=== PATIENT | male | born 1975 | race American Indian/Alaskan Native ===

== ENCOUNTER 2017-09-09 03:27 | Observation (INO) | payer MEDICAID, OTHER ==
--- NOTE | 2017-09-09 03:45 | ED PDOC ---
Arrival/HPI - General Chief Complaint: Chest Pain Time Seen by Provider: 09/09/17 03:33 Historian: Patient - History of Present Illness Narrative History of Present Illness (Text): 09/09/17 03:42 41 year old male, who denies any past medical history, presents to the emergency department complaining of intermittent left sided chest pain that began 40 minutes ago. Patient reports similar symptoms a year ago with no medical evaluation. Patient denies any cardiac family history, drug use, recent travel, any fever, chills, chest pain, shortness of breath, nausea, vomiting, diarrhea, urinary symptoms, back pain, neck pain, headache, dizziness, or any other complaints. Time/Duration: Other (40 minutes) Symptom Onset: Sudden Symptom Course: Unchanged Quality: Other ("Bubbling") Activities at Onset: Light Context: Home Past Medical History - Provider Review Nursing Documentation Reviewed: Yes - Travel History Have you recently traveled outside [place] w/in the past 3 mons?: No - Infectious Disease Hx of Infectious Diseases: None - Psychiatric Hx Substance Use: No Family/Social History - Physician Review Nursing Documentation Reviewed: Yes Family/Social History: No Known Family HX. denies: Other (Cardiac) Smoking Status: Never Smoked Hx Alcohol Use: No Hx Substance Use: No Allergies/Home Meds Allergies/Adverse Reactions: Allergies No Known Allergies Allergy (Verified 09/09/17 03:32) Home Medications: Home Meds Medication Instructions Recorded Confirmed No Known Home Med 09/09/17 09/09/17 Review of Systems - Physician Review All systems were reviewed & negative as marked: Yes - Review of Systems Constitutional: absent: Fevers, Other (Chills) Respiratory: absent: SOB Cardiovascular: Chest Pain Gastrointestinal: absent: Diarrhea, Nausea, Vomiting Genitourinary Male: absent: Dysuria, Frequency, Hematuria Musculoskeletal: absent: Back Pain, Neck Pain Neurological: absent: Headache, Dizziness Physical Exam Vital Signs Reviewed: Yes Vital Signs Temp Pulse Resp BP Pulse Ox 09/09/17 07:05 52 L 17 138/84 100 09/09/17 03:32 98.0 F 54 L 18 137/87 100 09/09/17 03:29 98.0 F 54 L 18 137/87 100 Temperature: Afebrile Blood Pressure: Normal Pulse: Bradycardic Respiratory Rate: Normal Appearance: Positive for: Well-Appearing, Non-Toxic, Comfortable Pain Distress: None Mental Status: Positive for: Alert and Oriented X 3 - Systems Exam Head: Present: Atraumatic, Normocephalic Pupils: Present: PERRL Extroacular Muscles: Present: EOMI Conjunctiva: Present: Normal Mouth: Present: Moist Mucous Membranes Neck: Present: Normal Range of Motion Respiratory/Chest: Present: Clear to Auscultation, Good Air Exchange. No: Respiratory Distress, Accessory Muscle Use Cardiovascular: Present: Regular Rate and Rhythm, Normal S1, S2. No: Murmurs Abdomen: No: Distention Back: Present: Normal Inspection Upper Extremity: Present: Normal Inspection. No: Cyanosis, Edema Lower Extremity: Present: Normal Inspection. No: Edema Neurological: Present: GCS=15, CN II-XII Intact, Speech Normal Skin: Present: Warm, Dry, Normal Color. No: Rashes Psychiatric: Present: Alert, Oriented x 3, Normal Insight, Normal Concentration Medical Decision Making ED Course and Treatment: 09/09/17 03:42 Impression: 41 year old male presents complaining of intermittent left sided chest pain that began 40 minutes ago. Denies any past medical history. Plan: -- EKG -- Labs -- Aspirin -- Urinalysis -- Nasal Cannula -- Reassess and disposition Progress Notes: 09/09/17 07:59 trop neg d-dimer neg wbc neg cxr no acute ECG sinus bradycardia pt now did admit to cocain use in about 1-1.5 mo ago but none in the past few fews. d/w Aracely Singh and will admit to tele obs and utox pending. - Lab Interpretations Lab Results: 09/09/17 04:03 09/09/17 04:03 Lab Results 09/09/17 04:03: Sodium 141, Potassium 4.3, Chloride 102, Carbon Dioxide 30, Anion Gap 14, BUN 28 H, Creatinine 1.0, Est GFR ( Amer) > 60, Est GFR ( Non-Af Amer) > 60, Random Glucose 96, Calcium 9.9, Magnesium 2.0, Total Bilirubin 0.6, AST 41, ALT 44, Alkaline Phosphatase 58, Lactate Dehydrogenase 566, Total Creatine Kinase 210, Troponin I < 0.01, Total Protein 8.1, Albumin 4.7, Globulin 3.3, Albumin/Globulin Ratio 1.4 09/09/17 04:03: PT 11.0, INR 1.01, APTT 32.5, D-Dimer, Quantitative < 200 09/09/17 04:03: WBC 7.3, RBC 4.65, Hgb 12.9 L, Hct 40.8 L, MCV 87.7, MCH 27.7, MCHC 31.6, RDW 13.2, Plt Count 282, MPV 10.1, Gran % 58.2, Lymph % (Auto) 30.9, [place] % (Auto) 9.0 H, Eos % (Auto) 1.5, Baso % (Auto) 0.4, Gran # 4.26, Lymph # 2.3, [place] # 0.7 H, Eos # 0.1, Baso # 0.03 I have reviewed the lab results: Yes - RAD Interpretation Narrative RAD Interpretations (Text): 09/09/17 07:53 cxr no acute. Radiology Orders: 09/09/17 07:03 CHEST TWO VIEWS (PA/LAT) [RAD] Stat Information Systems Supervisor: ED Physician - EKG Interpretation Interpreted by ED Physician: Yes (sinus bradycardia, flipped t waves avr, v1, v2 , flattened iii) Type: 12 lead EKG - Medication Orders Current Medication Orders: Discontinued Medications Aspirin (Aspirin) 325 mg PO STAT STA Stop: 09/09/17 03:45 Last Admin: 09/09/17 03:56 Dose: 325 mg - Scribe Statement The provider has reviewed the documentation as recorded by the Gypsy Rivera Provider Scribe Attestation: All medical record entries made by the Gypsy were at my direction and personally dictated by me. I have reviewed the chart and agree that the record accurately reflects my personal performance of the history, physical exam, medical decision making, and the department course for this patient. I have also personally directed, reviewed, and agree with the discharge instructions and disposition. Disposition/Present on Arrival - Present on Arrival Any Indicators Present on Arrival: No History of DVT/PE: No History of Uncontrolled Diabetes: No Urinary Catheter: No History of Decub. Ulcer: No History Surgical Site Infection Following: None - Disposition Have Diagnosis and Disposition been Completed?: Yes Diagnosis: Chest pain Disposition: HOSPITALIZED Disposition Time: 08:00 Patient Plan: Admission, Telemetry Condition: IMPROVED Discharge Instructions (ExitCare): Chest Pain (ED) Forms: scanR (Turkish)
[2017-09-09 04:34] LABS: BASO # 0.03 K/mm3 (0.0-2.0); BASO % 0.4 % (0.0-3.0); EOS # 0.1 (0.0-0.7); EOS % 1.5 % (1.5-5.0); GRAN # 4.26 (1.4-6.5); GRAN % 58.2 % (50.0-68.0); HEMATOCRIT 40.8 % (42.0-52.0); LYMPH # 2.3 (1.2-3.4); LYMPH % 30.9 % (22.0-35.0); MEAN CELL VOLUME 87.7 fl (80.0-105.0); MEAN CORPUSCULAR HEMOGLOBIN 27.7 pg (25.0-35.0); MEAN CORPUSCULAR HGB CONC 31.6 g/dl (31.0-37.0); MEAN PLATELET VOLUME 10.1 fl (7.0-11.0); MONO # 0.7 (0.1-0.6); RED CELL DISTRIBUTION WIDTH 13.2 % (11.5-14.5); WHITE BLOOD COUNT 7.3 10^3/ul (4.5-11.0)
[2017-09-09 04:38] LABS: ALB/GLOB RATIO 1.4 (1.1-1.8); BILIRUBIN,TOTAL 0.6 mg/dL (0.2-1.3); CALCIUM 9.9 mg/dL (8.4-10.5); GFR AFRICAN-AMERICAN > 60; GLUCOSE,RANDOM 96 mg/dL (70-110); TOTAL PROTEIN 8.1 g/dL (5.8-8.3)
[2017-09-09 04:48] LABS: TROPONIN I < 0.01 ng/mL
[2017-09-09 04:49] LABS: ALKALINE PHOSPHATASE 58 U/L (38-126); ALT/SGPT 44 U/L (7-56); AST/SGOT 41 U/L (17-59); BLOOD UREA NITROGEN 28 mg/dL (7-21); CARBON DIOXIDE 30 mmol/L (21-33); CHLORIDE 102 mmol/L (98-107); POTASSIUM 4.3 mmol/L (3.6-5.0); SODIUM 141 mmol/L (132-148)
[2017-09-09 04:53] LABS: D DIMER < 200 ng/mL (0-243); INR 1.01 (0.93-1.08); PARTIAL THROMBOPLASTIN TIME 32.5 Seconds (25.1-36.5)
[2017-09-09 06:41] VITALS: BMI 24.3
--- NOTE | 2017-09-09 08:58 | RAD ---
HISTORY: chest pain COMPARISON: No prior. TECHNIQUE: Chest PA and lateral FINDINGS: LUNGS: No active pulmonary disease. PLEURA: No significant pleural effusion identified. No pneumothorax apparent. CARDIOVASCULAR: Normal. OSSEOUS STRUCTURES: No significant abnormalities. VISUALIZED UPPER ABDOMEN: Normal. OTHER FINDINGS: None. IMPRESSION: No active disease.
--- NOTE | 2017-09-09 10:30 | CARD ---
APPROVED REPORT EKG Measurement Heart [id number] [place] [id number] [id number] <Conclusion> Sinus bradycardia Otherwise normal ECG
[2017-09-09 13:51] LABS: PH,URINE 6.5 (4.7-8.0); URINE BILIRUBIN NEGATIVE (NEGATIVE); URINE BLOOD NEGATIVE (NEGATIVE); URINE GLUCOSE (UA) NEGATIVE (NEGATIVE); URINE KETONE TRACE mg/dL (NEGATIVE); URINE LEUKOCYTE ESTERASE NEGATIVE Leu/uL (NEGATIVE); URINE PROTEIN TRACE mg/dL (<30 mg/dL); URINE UROBILINOGEN 0.2 E.U./dL (<1 E.U./dL)
[2017-09-09 13:53] LABS: URINE APPEARANCE CLEAR (CLEAR); URINE COLOR YELLOW (YELLOW)
[2017-09-09 14:06] LABS: URINE BACTERIA MOD (NEG); URINE RBC NEGATIVE /hpf (0-2)
--- NOTE | 2017-09-09 15:45 | CP.PCM.HP ---
History of Present Illness - History of Present Illness History of Present Illness: CC: Chest pain HPI: Patient is a 41 year old male with a past medical history of cocaine and alcohol abuse who presented to [facility] [place] ED on 09/09/2017 with complaints of chest pain. Patient states chest pain started at 3:00 a.m. [place] When asked where the pain was patient pointed to his left chest stating it feels as if bubbles are in his chest. Denies radiation to neck, jaw, arm, or back. Denies exacerbating or relieving factors. Stated the pain occurred three times, each episode in time by five minutes. Patient states prior to event 3 days ago, he was with friends and consumed cocaine as well as 6 cans of 24 oz of beer. Patient also states he has some stresses going on in life which he prefers to discuss with a psychiatrist. States he planned on seeing a psychiatrist in the past due to family telling him of his episodes of aggression when he would drink. PMD: Denies PMH Denies Surgical history: denies Family history: mother- from cancer due to drinking can't recall name, father- from cancer, can't recall name Social history: denies tobacco use, admits to drinking this past week but states he hasn't drank like this in five years, admits to cocaine abuse Allergies: denies Present on Admission - Present on Admission Any Indicators Present on Admission: No Review of Systems - Constitutional Constitutional: absent: Chills, Fever, Headache, Lethargy, Malaise - EENT Eyes: absent: Blurred Vision, Change in Vision - Cardiovascular Cardiovascular: Chest Pain, Chest Pain at Rest. absent: Dyspnea - Respiratory Respiratory: absent: Dyspnea, Chest Congestion - Gastrointestinal Gastrointestinal: absent: Abdominal Pain, Constipation - Genitourinary Genitourinary: absent: Difficulty Urinating, Dysuria - Musculoskeletal Musculoskeletal: absent: Arthralgias, Back Pain - Integumentary Integumentary: absent: Alopecia, Bleeding Lesions - Neurological Neurological: absent: Abnormal Hearing, Abnormal Movements - Psychiatric Psychiatric: Suicidal Ideation. absent: Paranoia Past Patient History - Infectious Disease Hx of Infectious Diseases: None - Past Social History Smoking Status: Former Smoker - CARDIAC Hx Cardiac Disorders: No Hx Angina: No Hx Cardia Arrhythmia: No Hx Circulatory Problems: No Hx Congestive Heart Failure: No Hx Heart Murmur: No Hx Heart Transplant: No Hx Hypercholesterolemia: No Hx Hypertension: No Hx Internal Defibrillator: No Hx Mitral Valve Prolapse: No Hx Pacemaker: No Hx Peripheral Edema: No Hx Peripheral Vascular Disease: No - PULMONARY Hx Respiratory Disorders: No Hx Asthma: No Hx Bronchitis: No Hx Chronic Obstructive Pulmonary Disease (COPD): No Hx Emphysema: No Hx Pneumonia: No Hx Respiratory Aspiration: No Hx Respiratory Tract Infection: No Hx Sleep Apnea: No Hx Tuberculosis: No - NEUROLOGICAL Hx Neurological Disorder: No Hx Alzheimer's Disease: No HX Cerebrovascular Accident: No Hx Dementia: No Hx Dizziness: No Hx Meningitis: No Hx Migraine: No Hx Parkinson's Disease: No Hx Seizures: No Hx Transient Ischemic Attacks (TIA): No - HEENT Hx HEENT Problems: No Hx Blind: No Hx Cataracts: No Hx Deafness: No Hx Difficulty Chewing: No Hx Epistaxis: No Hx Glaucoma: No Hx Macular Degeneration: No - RENAL Hx Chronic Kidney Disease: No Hx Dialysis: No Hx Kidney Stones: No Hx Neurogenic Bladder: No Hx Pyelonephritis: No Hx Renal (Kidney) Cancer: No Hx Renal Failure: No - ENDOCRINE/METABOLIC Hx Endocrine Disorders: No Hx Adrenal Cancer: No Hx Diabetes Insipidus: No Hx Diabetes Mellitus Type 1: No Hx Diabetes Mellitus Type 2: No Hx Hyperthyroidism: No Hx Hypothyroidism: No Hx Systemic Lupus Erythematosus: No - HEMATOLOGICAL/ONCOLOGICAL Hx Blood Disorders: No Hx AIDS: No Hx Anemia: No Hx Cancer: No Hx Chemotherapy: No Hx Cirrhosis: No Hx Hemophilia: No Hx Hepatitis A: No Hx Hepatitis B: No Hx Hepatitis C: No Hx Human Immunodeficiency Virus (HIV): No Hx Metastesis: No Hx Shingles: No Hx Sickle Cell Disease: No Hx Unexplained Bleeding: No - INTEGUMENTARY Hx Dermatological Problems: No Hx Basil Cell: No Hx Eczema: No Hx Melanoma: No Hx Psoriasis: No Hx Squamous Cell: No - MUSCULOSKELETAL/RHEUMATOLOGICAL Hx Musculoskeletal Disorders: No Hx Arthritis: No Hx Back Pain: No Hx Degenerative Joint Disease: No Hx Falls: No Hx Fractures: No Hx Gout: No Hx Herniated Disk: No Hx Myasthenia Gravis: No Hx Osteoarthritis: No Hx Osteomyelitis: No Hx Osteoporosis: No Hx Rhabdomyolysis: No Hx Spinal Stenosis: No Hx Unsteady Gait: No - GASTROINTESTINAL Hx Gastrointestinal Disorders: No Hx Colostomy: No Hx Crohn's Disease: No Hx Diverticulitis: No Hx Gall Bladder Disease: No Hx Gastroesophageal Reflux: No Hx Ileostomy: No Hx Liver Failure: No Hx Pancreatitis: No HX Swallowing Problems: No Hx Ulcer: No - GENITOURINARY/GYNECOLOGICAL Hx Genitourinary Disorders: No Hx Hematuria: No Hx Incontinence: No Hx Prostate Problems: No Hx Sexually Transmitted Disorders: No Hx Urinary Tract Infection: No - PSYCHIATRIC Hx Psychophysiologic Disorder: No Hx Anxiety: No Hx Bipolar Disorder: No Hx Depression: No Hx Emotional Abuse: No Hx Hallucinations: No Hx Panic Symptoms: No Hx Paranoia: No Hx Post Traumatic Stress Disorder: No Hx Psychosis: No Hx Physical Abuse: No Hx Schizophrenia: No Hx Sexual Abuse: No - SURGICAL HISTORY Hx Surgeries: No Hx Amputation: No Hx Appendectomy: No Hx Cardiac Catheterization: No Hx Cholecystectomy: No Hx Coronary Stent: No Hx Gastric Bypass Surgery: No Hx Hysterectomy: No Hx Joint Replacement: No Hx Kidney Transplant: No Hx Liver Transplant: No Hx Mastectomy: No Hx Musculoskeletal Surgery: No Hx Open Heart Surgery: No Hx Orthopedic Surgery: No Hx Splenectomy: No Hx Valve Replacement: No Meds Allergies/Adverse Reactions: Allergies Allergy/AdvReac Type Severity Reaction Status Date / Time No Known Allergies Allergy Verified 09/09/17 03:32 Physical Exam - Constitutional Appears: Toxic, No Acute Distress - Head Exam Head Exam: ATRAUMATIC, NORMAL INSPECTION, NORMOCEPHALIC - Eye Exam Eye Exam: EOMI, Normal appearance - ENT Exam ENT Exam: Mucous Membranes Moist - Neck Exam Neck exam: Positive for: Normal Inspection - Cardiovascular Exam Cardiovascular Exam: REGULAR RHYTHM, +S1, +S2 - GI/Abdominal Exam GI & Abdominal Exam: Normal Bowel Sounds, Soft - Neurological Exam Neurological exam: Altered Results - Vital Signs Recent Vital Signs: Last Vital Signs Temp 98.1 F 09/09/17 11:11 Pulse 54 L 09/09/17 11:11 Resp 18 09/09/17 11:11 BP 113/76 09/09/17 11:11 Pulse Ox 100 09/09/17 08:08 - Labs Result Diagrams: 09/10/17 08:30 09/10/17 08:30 Labs: Laboratory Results - last 24 hr 09/09/17 09/09/17 13:46 14:45 Troponin I < 0.01 Urine Color Yellow Urine Appearance Clear Urine pH 6.5 Ur Specific [place] 1.020 Urine Protein Trace H Urine Glucose (UA) Negative Urine Ketones Trace H Urine Blood Negative Urine Nitrate Negative Urine Bilirubin Negative Urine Urobilinogen 0.2 Ur Leukocyte Esterase Negative Urine RBC Negative Urine WBC 2 - 5 Ur Epithelial Cells 1 - 3 Urine Bacteria Mod Assessment & Plan - Assessment and Plan (Free Text) Assessment: 41 year old male presenting with chest pain most likely from coronary vasospasms secondary to cocaine abuse. Plan: 1. .Chest pain secondary to coronary vasospasm due to cocaine use vs r/o ACS - EKG - Echo - Cardiology consulted - Aspirin given in ED, continue with daily aspirin - CBC, CMP, Hga1C, Lipid panel, TSH - Urine tox screen - CIWA - CT head w/o contrast - Psychiatric consult
[2017-09-09] MEDS ORDERED: Multivitamin (MVI) 10 ML, Thiamine 100 MG, Folic Acid 1 MG in Sodium Chloride 0.9% 1,00... IV ONE (18:23)
[2017-09-10 08:40] LABS: BASO # 0.02 K/mm3 (0.0-2.0); BASO % 0.4 % (0.0-3.0); EOS # 0.1 (0.0-0.7); EOS % 1.9 % (1.5-5.0); GRAN # 3.28 (1.4-6.5); GRAN % 63.1 % (50.0-68.0); HEMATOCRIT 40.6 % (42.0-52.0); LYMPH # 1.4 (1.2-3.4); LYMPH % 27.5 % (22.0-35.0); MEAN CELL VOLUME 87.3 fl (80.0-105.0); MEAN PLATELET VOLUME 9.5 fl (7.0-11.0); MONO # 0.4 (0.1-0.6); MONO % 7.1 % (1.0-6.0); RED CELL DISTRIBUTION WIDTH 13.2 % (11.5-14.5); WHITE BLOOD COUNT 5.2 10^3/ul (4.5-11.0)
[2017-09-10 09:03] LABS: ALB/GLOB RATIO 1.3 (1.1-1.8); ALKALINE PHOSPHATASE 52 U/L (38-126); ALT/SGPT 37 U/L (7-56); AST/SGOT 32 U/L (17-59); BILIRUBIN,TOTAL 0.5 mg/dL (0.2-1.3); BLOOD UREA NITROGEN 18 mg/dL (7-21); CALCIUM 9.2 mg/dL (8.4-10.5); CARBON DIOXIDE 28 mmol/L (21-33); CHLORIDE 106 mmol/L (98-107); CHOLESTEROL 148 mg/dL (130-200); GFR AFRICAN-AMERICAN > 60; GLUCOSE,RANDOM 100 mg/dL (70-110); SODIUM 141 mmol/L (132-148); TOTAL PROTEIN 7.3 g/dL (5.8-8.3)
--- NOTE | 2017-09-10 09:23 | CARD ---
APPROVED REPORT EKG Measurement Heart [id number] [place] [id number] [id number] <Conclusion> Sinus bradycardia Otherwise normal ECG No change
--- NOTE | 2017-09-10 09:28 | CT ---
PROCEDURE: CT HEAD WITHOUT CONTRAST. HISTORY: Confusion, chest pain COMPARISON: None available. TECHNIQUE: Axial computed tomography images were obtained through the head/brain without intravenous contrast. Radiation dose: Total exam DLP = 954.76 mGy-cm. This CT exam was performed using one or more of the following dose reduction techniques: Automated exposure control, adjustment of the mA and/or kV according to patient size, and/or use of iterative reconstruction technique. FINDINGS: HEMORRHAGE: No intracranial hemorrhage. BRAIN: No mass effect or edema. No atrophy or chronic microvascular ischemic changes. VENTRICLES: Unremarkable. No hydrocephalus. Incidental finding(s): Cavum septum pellucidum common normal variant. CALVARIUM: Unremarkable. PARANASAL SINUSES: Unremarkable as visualized. No significant inflammatory changes. MASTOID AIR CELLS: Unremarkable as visualized. No inflammatory changes. OTHER FINDINGS: None. IMPRESSION: No acute intracranial abnormalities. No significant findings to account for the clinical presentation.
[2017-09-10 10:02] VITALS: BP 117/71; PULSE 49; RESP 18; TEMP 97.8; O2SAT 100
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
--- NOTE | 2017-09-10 23:42 | CON ---
CARDIOLOGY CONSULTATION DATE: REASON FOR CONSULTATION: Reported chest pain. HISTORY OF PRESENT ILLNESS: The patient is a 41-year-old male who reported to the Emergency Room Team that he has left-sided chest pain. He denies any prior cardiac history or any cardiac workup. The patient denies any chest pain at this time. SOCIAL HISTORY: The patient quit smoking recently and he recently from his . He works as a drywall finishing person. MEDICATIONS: Folic acid 1 mg daily, multivitamin 1 tablet once a day and thiamine 100 mg once a day. PHYSICAL EXAMINATION GENERAL: The patient is a middle aged male who does not appear to be in no acute distress. VITAL SIGNS: Blood pressure 117/71, heart rate 49, temperature 97.8 and respirations 18. HEENT: Normocephalic. CHEST: Clear. HEART: S1 and S2 regular. ABDOMEN: Soft. EXTREMITIES: No edema. LABORATORY DATA: SMA-7 is within normal limits. Three sets of troponins are negative. TSH level is within normal limits. PT, PTT and D-dimer all within normal limits. Hemoglobin and hematocrit 13 and 40.6, white count and platelet counts are within normal limits. Head CT scan without contrast no acute intracranial findings. EKG revealed sinus bradycardia at the rate of 58. ASSESSMENT: 1. Atypical chest pain, myocardial infarction is ruled out. 2. Asymptomatic sinus bradycardia. 3. Consider depression. RECOMMENDATIONS: Case was discussed with Dr. Wiggins. I will start aspirin 81 mg once a day. I will review the echocardiogram study which was done today. Mack Sanches MD
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
[2017-09-11] MEDS ORDERED: Multivitamin With Minerals Tab PO SCH (08:00)
--- NOTE | 2017-09-11 09:37 | CARD ---
APPROVED REPORT EXAM: Two-dimensional and M-mode echocardiogram with Doppler and color Doppler. Other Information Quality : FairRhythm : INDICATION Chest Pain 2D DIMENSIONS IVSd1.0 (0.7-1.1cm)LVDd4.5 (3.9-5.9cm) PWd1.2 (0.7-1.1cm)IVSs1.0 (0.8-1.2cm) LVDs3.8 (2.5-4.0cm)FS (%) 14.7 % PWs0.9 (0.8-1.2cm) M-Mode DIMENSIONS Left Atrium (MM)3.10 (2.5-4.0cm)Aortic Root2.80 (2.2-3.7cm) Aortic Cusp Exc.2.30 (1.5-2.0cm) Aortic Valve AoV Peak Chwhdesu351.0cm/Hank Peak GR.8mmHg Mitral Valve MV E Iqrbgnxj40.6cm/sMV A Jfectniz38.9cm/sE/A ratio1.5 TDI Lateral E' Peak V17.10cm/sMedial E' Peak V12.00cm/sE/Lateral E'3.9 E/Medial E'5.6 Tricuspid Valve TR Peak [id number]/sRAP [id number] Peak Gr.22mmHg [id number] LEFT VENTRICLE The left ventricle is normal size. There is normal left ventricular wall thickness. The left ventricular function is normal. The left ventricular ejection fraction is within the normal range. There is normal LV segmental wall motion. RIGHT VENTRICLE The right ventricle is normal size. ATRIA The left atrium size is normal. The right atrium size is normal. The atrial septum is aneurysmal. AORTIC VALVE The aortic valve is normal in structure. MITRAL VALVE The mitral valve is normal in structure. TRICUSPID VALVE The tricuspid valve is normal in structure. There is trace tricuspid regurgitation. PULMONIC VALVE The pulmonic valve is not well visualized. GREAT VESSELS The aortic root is normal in size. PERICARDIAL EFFUSION There is no pericardial effusion. <Conclusion> The left ventricle is normal size. There is normal left ventricular wall thickness. The left ventricular function is normal. There is no pericardial effusion.
== END 2017-09-10 16:07 | disposition home or self-care (01) ==
LOC: ED 03:27 → ERH 08:05 → 3RNO 10:23
PROVIDERS: ADMIT Internal Medicine; ATTEND Internal Medicine
DX: I20.1 Angina pectoris with documented spasm (principal); F14.10 Cocaine abuse, uncomplicated; F32.89 Other specified depressive episodes; F10.10 Alcohol abuse, uncomplicated; F43.20 Adjustment disorder, unspecified; F60.2 Antisocial personality disorder; Z59.0 Homelessness; Z87.891 Personal history of nicotine dependence; R00.1 Bradycardia, unspecified; F19.94 Other psychoactive substance use, unspecified with psychoactive substance-induced mood disorder
CPT/HCPCS: 36415; 70450; 71020; 80053; 80061; 81001; 82550; 83036; 83615; 83735; 84443; 84484; 85025; 85378; 85610; 85730; 87086; 93005; 93306; 99285; G0378; G0480; J3411; J7040